=== PATIENT | female | born 1985 | race Caucasian/White ===

== ENCOUNTER 2023-01-25 08:44 | Emergency (ER) | payer OTHER ==
[2023-01-25 09:11] VITALS: BP 111/63; PULSE 96; RESP 18; TEMP 98.3; BMI 41.1
== END 2023-01-25 10:49 | disposition home or self-care (01) ==
LOC: JERFT 08:44
DX: H10.31 Unspecified acute conjunctivitis, right eye (principal)
CPT/HCPCS: 99283-25

== ENCOUNTER 2023-05-24 09:09 | Emergency (ER) | payer OTHER ==
[2023-05-24 09:17] VITALS: BP 143/83; PULSE 100; RESP 17; TEMP 98.1; BMI 37.8
[2023-05-24] MEDS ORDERED: TETRACAINE 0.5% OPHTH SOLN 2 ML BOTTLE ONE (09:46)
[2023-05-24] MEDS ORDERED: FLUORESCEIN NA 1 EA STRIP ONE (09:46)
[2023-05-24] MEDS: TETRACAINE 0.5% OPHTH SOLN 2 ML BOTTLE OD ONE (10:15)
[2023-05-24] MEDS: FLUORESCEIN NA 1 EA STRIP OD ONE (10:15)
== END 2023-05-24 10:38 | disposition home or self-care (01) ==
LOC: JER 09:09
DX: H11.89 Other specified disorders of conjunctiva (principal)
CPT/HCPCS: 99283-25

== ENCOUNTER → 2024-07-03 | Day surgery (SDC) | payer OTHER | END | disposition home or self-care (01) | LOC: JRADUS-SUR 10:57 | PROC: BH41ZZZ Ultrasonography of Left Breast (ICD-10-PCS; principal; 2024-07-03) | DX: Z86.000 Personal history of in-situ neoplasm of breast (principal) | CPT/HCPCS: 76642-TC-LT ==